=== PATIENT | female | born 1935 | race Caucasian/White ===

== ENCOUNTER → 2020-01-17 14:09 | Outpatient (CLI) | payer MEDICARE, SELFPAY ==
--- NOTE | 2020-01-17 | DI.MRI.S_ITS ---
PROCEDURE: MR LUMBAR SPINE WO CON INDICATIONS: Low Back Pain TECHNIQUE: Noncontrast sagittal T1 spin echo and T2 fast echo, sagittal STIR, axial T1 and T2 fast spin echo through the lumbar spine. Axial and oblique coronal T1 spin echo and STIR through the sacrum. In cases with scoliosis, additional coronal T2 fast spin echo may be performed. COMPARISON: None. FINDINGS: Image quality: This examination is limited by involuntary motion artifact. Alignment and Curvature: There is [id number] dextroconvex lumbar scoliosis. Mild grade 1 anterolisthesis is seen at L4-L5. Minimal retrolisthesis is seen at L1-L2 and L2-L3. Bone Marrow: Marrow is of normal overall signal. No acute vertebral body compression fractures. No sacral fractures. Spinal Cord: Conus medullaris terminates at the T12-L1 level. Visualized cord demonstrates normal signal and size. Paraspinous Soft Tissues: No paravertebral masses. T12-L1: Normal appearance. L1-L2: Moderate loss of disc height is seen. Loss of disc signal is seen. Mild to moderate disc bulge is seen, which is eccentric to the right. Mild bilateral neural foraminal narrowing is seen. No significant central canal narrowing is seen. L2-L3: Moderate loss of disc height is seen. Loss of disc signal is seen. Mild to moderate disc bulge is seen. Mild to moderate facet hypertrophy is seen. There is [id number] left-sided and no significant right-sided neural foraminal narrowing seen. Moderate central canal narrowing is seen. L3-L4: Mild loss of disc height is seen. Loss of disc signal is seen. Moderate generalized disc bulge is seen, which is eccentric to the left, with a left foraminal disc protrusion. Moderate facet joint hypertrophy is seen. Associated hypertrophy of the ligamentum flavum can be seen. There is moderate left-sided and minimal right-sided neural foraminal narrowing seen. Mild to moderate central canal narrowing is seen. L4-L5: [id number] loss of disc height and disc signal can be seen. Moderate disc bulge is seen, with a central disc protrusion. Prominent facet hypertrophy can be seen at this level. There is moderate right-sided and mild left-sided neural foraminal narrowing seen. Moderate central canal narrowing is seen. L5-S1: Moderate loss of disc height is seen. Loss of disc signal is seen. Moderate disc bulge is seen, which is eccentric to the right. There is moderate to prominent right-sided and moderate left-sided facet hypertrophy seen. There is moderate right-sided and no left-sided neural foraminal narrowing seen. Mild central canal narrowing is seen. Sacrum: Sacral neural foramina appear normal throughout. Superior to the piriformis muscles, the pre-plexal structures appear normal, including the lumbosacral trunk and S1 root. Just anterior to the piriformis muscles, the sacral plexus proper demonstrates normal morphology (lumbosacral trunk, S1 to S3 nerve roots). Inferior to the piriformis muscles, the sciatic nerves appear normal. 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 IMPRESSION: Njqy-ae-ptmbtiyq dextroconvex lumbar scoliosis is seen. Multiple levels of lumbar spine degenerative change are seen. 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 Dictated by: Fredy Maya M.D. on 01/17/2020 at 16:51 Approved by: Fredy Maya M.D. on 01/17/2020 at 16:57
== END ==
PROVIDERS: Family Provider Family Medicine Geriatric Medicine; PCP Family Medicine; Referring Provider Family Medicine Sports Medicine; Visit Provider Family Medicine Sports Medicine
DX: M54.5 Low back pain (principal); M47.816 Spondylosis without myelopathy or radiculopathy, lumbar region; M47.817 Spondylosis without myelopathy or radiculopathy, lumbosacral region; M41.86 Other forms of scoliosis, lumbar region
CPT/HCPCS: 72148